=== PATIENT | male | born 1950 | race Caucasian/White ===

== ENCOUNTER 2019-01-27 05:29 | Inpatient (IN) | payer MEDICARE, BC ==
[~2019-01-27] VITALS: Ht 177.8 cm; Wt 114.0 kg
[2019-01-27] MEDS ORDERED: LACTATED RINGERS 1,000 ML IV SCH (06:03)
[2019-01-27 06:09] VITALS: BP 126/87
[2019-01-27] MEDS ORDERED: GLIM4TAB2 PO (06:19)
[2019-01-27] MEDS ORDERED: LOSA100T14 PO (06:19)
[2019-01-27] MEDS ORDERED: VENL150T PO (06:19)
[2019-01-27] MEDS ORDERED: BUPR100T11 PO (06:19)
[2019-01-27] MEDS ORDERED: METF500T17 PO (06:19)
[2019-01-27] MEDS ORDERED: ASPI-496 PO (06:19)
[2019-01-27] MEDS ORDERED: CHLO25TA PO (06:19)
[2019-01-27] MEDS ORDERED: ALLO100T30 PO (06:19)
[2019-01-27] MEDS ORDERED: NEBI10TA3 PO (06:19)
[2019-01-27] MEDS ORDERED: SITA100T PO (06:19)
[2019-01-27] MEDS ORDERED: [UNRECOGNIZED DRUG - OTHER] NAS (06:19)
[2019-01-27] MEDS ORDERED: PANT40TA5 PO (06:19)
[2019-01-27] MEDS ORDERED: LORA-439 PO (06:19)
[2019-01-27] MEDS ORDERED: BACITRACIN 50,000 UNIT ONE (06:34)
[2019-01-27] MEDS ORDERED: THROMBIN 20,000 UNIT VIAL TP ONE (06:34)
[2019-01-27] MEDS ORDERED: BUPIVACAINE/PF-EPI 0.5% 1:200K ONE (06:34)
[2019-01-27 06:35] LABS: BASOPHILS # (AUTO) 0.05 x10^3/uL (0-0.1); BASOPHILS % (AUTO) 1 % (0-1); EOSINOPHILS # (AUTO) 0.36 x10^3/uL (0-0.4); EOSINOPHILS % (AUTO) 6 % (1-7); LYMPHOCYTES # (AUTO) 1.75 x10^3/uL (1-3.4); LYMPHOCYTES % (AUTO) 30 % (22-44); MD NO; MEAN CORPUSCULAR HEMOGLOBIN 30.9 pg (27.5-34.5); MEAN CORPUSCULAR HGB CONC 32.9 g/dL (33.2-36.2); MEAN PLATELET VOLUME 8.2 fL (7.4-10.4); MONOCYTES # (AUTO) 0.62 x10^3/uL (0.2-0.8); MONOCYTES % (AUTO) 11 % (2-9); NEUTROPHILS # (AUTO) 3.09 x10^3/uL (1.8-6.8); NEUTROPHILS % (AUTO) 53 % (42-75); PLATELET COUNT 200 x10^3/uL (130-400); RED BLOOD COUNT 4.73 x10^6/uL (4.38-5.82); RED CELL DISTRIBUTION WIDTH 13.6 % (9.4-14.8)
[2019-01-27 06:44] LABS: ALANINE AMINOTRANSFERASE 39 U/L (12-78); ALBUMIN 4.2 g/dL (3.4-5.0); ANION GAP 9 mmol/L (5-15); CALCIUM 9.4 mg/dL (8.5-10.1); CHLORIDE 105 mmol/L (98-107)
[2019-01-27 06:47] LABS: ALKALINE PHOSPHATASE 56 U/L (45-117); BILIRUBIN,TOTAL 0.9 mg/dL (0.2-1.0); CREATININE 1.23 mg/dL (0.7-1.3); TOTAL PROTEIN 7.4 g/dL (6.4-8.2)
[2019-01-27] MEDS ORDERED: FENTANYL PF 250 MCG/5ML ONE (06:53)
[2019-01-27] MEDS ORDERED: METOPROLOL 1 MG/ML, 5ML IV PRN (07:00)
[2019-01-27] MEDS ORDERED: DIPHENHYDRAMINE 50 MG/ML, 1ML IVPush PRN (07:00)
[2019-01-27] MEDS ORDERED: ACETAMINOPHEN 500 MG TABLET PO ONE (07:00)
[2019-01-27] MEDS ORDERED: hydrALAzine 20 MG/ML, 1ML IV PRN (07:00)
[2019-01-27] MEDS ORDERED: PROMETHAZINE 25 MG/ML, 1ML IV PRN (07:00)
[2019-01-27] MEDS ORDERED: MEPERIDINE/PF 25MG/0.5ML IVPush PRN (07:00)
[2019-01-27] MEDS ORDERED: LABETALOL 5MG/ML, 20ML IV PRN ×2 (07:00→09:00)
[2019-01-27] MEDS ORDERED: PROCHLORPERAZINE 5 MG/ML, 2ML IV PRN (07:00)
[2019-01-27] MEDS ORDERED: HALOPERIDOL 5 MG/ML IV PRN ×2 (07:00)
[2019-01-27] MEDS ORDERED: HYDROmorphone 2 MG/ML, 1ML IVPush PRN (07:00)
[2019-01-27] MEDS ORDERED: GABAPENTIN 300 MG CAPSULE PO ONE (07:00)
[2019-01-27] MEDS ORDERED: NEOSTIGMINE 1 MG/ML, 10ML ONE (08:21)
[2019-01-27] MEDS ORDERED: SUCCINYLCHOLINE 20 MG/ML, 10ML ONE (08:21)
[2019-01-27] MEDS ORDERED: GLYCOPYRROLATE 0.2MG/1ML, 5ML ONE (08:21)
[2019-01-27] MEDS ORDERED: ONDANSETRON 2MG/ML, 2ML ONE (08:21)
[2019-01-27] MEDS ORDERED: ROCURONIUM 10MG/ML,5ML ONE (08:21)
[2019-01-27] MEDS ORDERED: PROPOFOL 10 MG/ML, 20ML ONE (08:21)
[2019-01-27] MEDS ORDERED: DEXAMETHASONE 4 MG/ML, 1ML ONE (08:21)
[2019-01-27] MEDS ORDERED: CEFAZOLIN 1,000 MG ONE (08:21)
[2019-01-27] MEDS ORDERED: POTASSIUM CHLORIDE 40 MEQ in SODIUM CHLORIDE 0.9% 1,000 ML IV SCH (08:53)
[2019-01-27] MEDS ORDERED: ONDANSETRON 2MG/ML, 2ML IV PRN (09:00)
[2019-01-27] MEDS ORDERED: TEMPLATE NON-FORMULARY MED. (Sitagliptin Phosphate** (Januvia**) 100 MG) PO SCH (09:00)
[2019-01-27] MEDS ORDERED: morphine SULFATE 10 MG/ML, 1ML IV PRN (09:00)
[2019-01-27] MEDS ORDERED: HYDROcodone/APAP 5/325 TABLET PO PRN (09:00)
[2019-01-27] MEDS ORDERED: ACETAMINOPHEN 325 MG TABLET PO PRN (09:00)
[2019-01-27] MEDS ORDERED: BUPROPION SR 100 MG TABLET PO SCH (09:00)
[2019-01-27] MEDS ORDERED: FENTANYL PF 100 MCG/2ML ONE (09:32)
[2019-01-27] MEDS ORDERED: HYDROmorphone 2 MG/ML, 1ML ONE (09:33)
[2019-01-27] MEDS: FENTANYL PF 100 MCG/2ML IV PRN ×2 (09:38→09:41)
[2019-01-27] MEDS ORDERED: OXYcodone 5 MG/5 ML ORAL.SOL UDC ONE (10:12)
[2019-01-27] MEDS ORDERED: OXYcodone 5 MG/5 ML ORAL.SOL UDC PO PRN (10:30)
[2019-01-27 11:00] VITALS: BP 111/70
[2019-01-27] MEDS ORDERED: LABETALOL 5 MG/ML SYRINGE IV PRN (11:14)
[2019-01-27] MEDS: LOSARTAN 50MG TABLET PO SCH (12:56)
[2019-01-27] MEDS: VENLAFAXINE 75 MG CAP ER PO SCH (12:57)
[2019-01-27] MEDS: metFORMIN 500 MG TABLET PO SCH ×2 (12:57→21:06)
[2019-01-27] MEDS: SENNA/DOCUSATE TABLET PO SCH (12:58)
[2019-01-27] MEDS: LORATADINE 10 MG TABLET PO SCH (12:58)
[2019-01-27] MEDS: PANTOPROZOLE 40MG TABLET PO SCH (12:58)
[2019-01-27] MEDS: CHLORTHALIDONE 25 MG TABLET PO SCH (12:59)
[2019-01-27] MEDS: ALLOPURINOL 100 MG TABLET PO SCH (13:00)
[2019-01-27] MEDS: INSULIN REGULAR 100 UNITS/ML, 3ML VIAL SQ-INSULIN SCH ×3 (13:01→21:07)
[2019-01-27] MEDS: GLIMEPIRIDE 4 MG TABLET PO SCH (13:12)
[2019-01-27] MEDS: NEBIVOLOL HCL 5 MG TABLET PO SCH (13:12)
[2019-01-27] MEDS: NS + 40MEQ KCL 1,000 ML IV SCH ×2 (13:13→22:44)
[2019-01-27 13:58] VITALS: BP 117/74
[2019-01-27] MEDS ORDERED: EPHEDRINE 50 MG/ML, 1ML ONE (15:08)
[2019-01-27] MEDS: CEFAZOLIN PMX 1GM/50ML 50 ML IVPB SCH (16:37)
[2019-01-27] MEDS: OXYcodone/APAP 5/325MG TABLET PO PRN ×2 (16:49→21:06)
[2019-01-27 20:38] VITALS: BP 127/84
[2019-01-28] MEDS: CEFAZOLIN PMX 1GM/50ML 50 ML IVPB SCH (00:11)
[2019-01-28 00:23] VITALS: BP 127/84
[2019-01-28] MEDS: OXYcodone/APAP 5/325MG TABLET PO PRN ×4 (01:08→06:24)
[2019-01-28 03:56] VITALS: BP 136/83
[2019-01-28 05:49] LABS: BASOPHILS # (AUTO) 0.02 x10^3/uL (0-0.1); BASOPHILS % (AUTO) 0 % (0-1); EOSINOPHILS # (AUTO) 0.15 x10^3/uL (0-0.4); EOSINOPHILS % (AUTO) 2 % (1-7); LYMPHOCYTES # (AUTO) 1.11 x10^3/uL (1-3.4); LYMPHOCYTES % (AUTO) 16 % (22-44); MD NO; MEAN CORPUSCULAR HEMOGLOBIN 31.5 pg (27.5-34.5); MEAN CORPUSCULAR HGB CONC 33.3 g/dL (33.2-36.2); MEAN CORPUSCULAR VOLUME 94.5 fL (81-97); MEAN PLATELET VOLUME 8.3 fL (7.4-10.4); MONOCYTES # (AUTO) 0.63 x10^3/uL (0.2-0.8); MONOCYTES % (AUTO) 9 % (2-9); NEUTROPHILS # (AUTO) 5.18 x10^3/uL (1.8-6.8); NEUTROPHILS % (AUTO) 73 % (42-75); PLATELET COUNT 165 x10^3/uL (130-400); RED BLOOD COUNT 4.09 x10^6/uL (4.38-5.82); RED CELL DISTRIBUTION WIDTH 14.4 % (9.4-14.8)
[2019-01-28 05:53] LABS: ANION GAP 8 mmol/L (5-15); CALCIUM 9.1 mg/dL (8.5-10.1); CHLORIDE 104 mmol/L (98-107)
[2019-01-28 05:56] LABS: CREATININE 1.12 mg/dL (0.7-1.3)
[2019-01-28 07:50] VITALS: BP 129/80
[2019-01-28] MEDS: NS + 40MEQ KCL 1,000 ML IV SCH (07:54)
[2019-01-28] MEDS: NEBIVOLOL HCL 5 MG TABLET PO SCH (07:55)
[2019-01-28] MEDS: SENNA/DOCUSATE TABLET PO SCH (08:08)
[2019-01-28] MEDS: LORATADINE 10 MG TABLET PO SCH (08:08)
[2019-01-28] MEDS: metFORMIN 500 MG TABLET PO SCH (08:08)
[2019-01-28] MEDS: PANTOPROZOLE 40MG TABLET PO SCH (08:08)
[2019-01-28] MEDS: LOSARTAN 50MG TABLET PO SCH (08:08)
[2019-01-28] MEDS: GLIMEPIRIDE 4 MG TABLET PO SCH (08:08)
[2019-01-28] MEDS: ALLOPURINOL 100 MG TABLET PO SCH (08:08)
[2019-01-28] MEDS: CHLORTHALIDONE 25 MG TABLET PO SCH (08:08)
[2019-01-28] MEDS: INSULIN REGULAR 100 UNITS/ML, 3ML VIAL SQ-INSULIN SCH ×2 (08:08→11:28)
[2019-01-28] MEDS: VENLAFAXINE 75 MG CAP ER PO SCH (08:09)
[2019-01-28] MEDS ORDERED: LINAGLIPTIN 5 MG TAB PO SCH (09:00)
[2019-01-28 10:45] VITALS: BP 128/78
== END 2019-01-28 11:55 | disposition home or self-care (01) | DRG 32 ==
LOC: ORIP 05:29 → 4NOR 10:43 → DCLOUNGE 01-28 11:43
PROVIDERS: ADMIT Neurological Surgery; ATTEND Neurological Surgery
PROC: 00160J6 Bypass Cerebral Ventricle to Peritoneal Cavity with Synthetic Substitute, Open Approach (ICD-10-PCS; principal; 2019-01-27 07:00)
DX: G91.2 (Idiopathic) normal pressure hydrocephalus (principal); R71.0 Precipitous drop in hematocrit; I10 Essential (primary) hypertension; E11.9 Type 2 diabetes mellitus without complications; K21.9 Gastro-esophageal reflux disease without esophagitis; Z88.6 Allergy status to analgesic agent; Z87.891 Personal history of nicotine dependence
CPT/HCPCS: 36415; 70450; 80048; 80053; 82962; 85025; 86850; 86900; C1729; G0378; J0690; J1100; J1815; J2405; J2704; J2710; J3010; C1727; C1894; J0330; J3480; J7120